=== PATIENT | male | born 1995 | race African-American/Black ===

== ENCOUNTER 2016-09-13 22:41 | Emergency (ER) | payer MEDICARE, MEDICAID ==
[~2016-09-13] VITALS: Ht 182.9 cm; Wt 81.8 kg
[~2016-09-13 22:41] MED LIST: ALEVE 220MG220 MG PO; AZASAN100 MG; BUSPAR5 MG PO; CELLCEPT 5500 MG/TAB; COGENTIN .0.5 MG/TAB PO; COGENTIN 1MG1 MG/TAB PO; DEPAKOTE ER 25250 MG PO; DIVALPROEX SOD250 M1 PO; DOXYCYCLINE 10100 MG PO; IMURAN 50MG TAB50 MG PO; INVEGA3 MG PO; KLONOPIN 0.5MG0.5 MG; KLONOPIN 1MG1 M1 PO; KLONOPIN 1MG1 MG PO; LITHIUM 30300 MG/CAP PO; LITHIUM CA150 MG/CAP; MIDRIN CAPSULE1 CAP PO; NO HOME MEDICATIONS; PEPCID 20MG TAB20 MG PO; PERCOCET 325 MG1 TA2 PO; PREDNISONE 5MG5 MG PO; PROVENTIL0.09 MG/A1 IH; RISPERDAL M-TAB1 MG PO; VITAMIN D 400400 IU PO; ZANTAC 150150 MG PO; ZITHROMAX 250M250 MG PO; ZYPREXA15 MG PO; ZYPREXA2.5 MG; ZYPREXA5 MG PO; ZYPREXA7.5 MG PO
[2016-09-13 22:47] VITALS: TEMP 99
[2016-09-13 23:21] LABS: BASO % 0.3 % (0.0-2.0); EOS % 0.1 % (0-4.0); GRAN # 5.9 (1.4-6.5); GRAN % 74.6 % (42.2-75.2); HEMATOCRIT 39.3 % (42.0-52.0); HEMOGLOBIN 12.5 g/dl (13.5-18.0); LYMPH # 1.3 (1.2-3.4); LYMPH % 16.4 % (20.0-51.0); MEAN CELL VOLUME 94 fl (80.0-100.0); MEAN CORPUSCULAR HEMOGLOBIN 30 pg (27.0-31.0); MEAN CORPUSCULAR HGB CONC 32 g/dl (33.0-37.0); MEAN PLATELET VOLUME 8.9 fl (7.4-10.4); MONO # 0.7 (0.1-0.6); MONO % 8.3 % (1.7-9.3); PLATELET COUNT 242 K/mm3 (130-400); RED BLOOD COUNT 4.18 M/mm3 (4.20-5.60); REDCELL DISTRIBUTION WIDTH-CV 13.2 % (11.5-14.5); WHITE BLOOD COUNT 7.9 K/mm3 (4.8-10.8)
[2016-09-13 23:35] LABS: CALCIUM 8.6 mg/dL (8.4-10.2); CREATININE, serum 0.85 mg/dL (0.66-1.25); POTASSIUM 3.6 mmol/L (3.4-5.0)
[2016-09-13 23:43] LABS: ERYTHROCYTE SEDIMENTATION RATE 28 mm/hr (0-15)
[2016-09-13 23:46] LABS: TROPONIN-I 0.014 ng/mL (0.000-0.034)
[2016-09-14] MEDS ORDERED: NAPROSYN500 MG PO (00:24)
[2016-09-14 01:18] VITALS: BP 128/70; PULSE 88
[2016-12-16] MEDS ORDERED: CRUTCHES MC (08:16)
== END 2016-09-14 01:19 | disposition home or self-care (01) ==
LOC: COL.ER 22:41
PROVIDERS: Emergency Medicine
DX: R07.89 Other chest pain (principal); R09.1 Pleurisy; J45.909 Unspecified asthma, uncomplicated; F31.9 Bipolar disorder, unspecified; F41.9 Anxiety disorder, unspecified; F20.9 Schizophrenia, unspecified; F17.210 Nicotine dependence, cigarettes, uncomplicated; F17.290 Nicotine dependence, other tobacco product, uncomplicated
CPT/HCPCS: J1885

== ENCOUNTER 2016-09-15 14:08 | Emergency (ER) | payer MEDICARE, MEDICAID ==
[~2016-09-15] VITALS: Ht 182.9 cm; Wt 86.4 kg
[~2016-09-15 14:08] MED LIST changes: +NAPROSYN500 MG PO
[2016-09-15 15:36] LABS: MEAN CELL VOLUME 92 fl (80.0-100.0); MEAN CORPUSCULAR HGB CONC 33 g/dl (33.0-37.0); MEAN PLATELET VOLUME 9.6 fl (7.4-10.4); PLATELET COUNT 192 K/mm3 (130-400); RED BLOOD COUNT 3.79 M/mm3 (4.20-5.60); REDCELL DISTRIBUTION WIDTH-CV 13.1 % (11.5-14.5); WHITE BLOOD COUNT 16.5 K/mm3 (4.8-10.8)
[2016-09-15 15:43] LABS: HEMATOCRIT 34.7 % (42.0-52.0); HEMOGLOBIN 11.6 g/dl (13.5-18.0); MEAN CORPUSCULAR HEMOGLOBIN 31 pg (27.0-31.0)
[2016-09-15 15:44] LABS: ADD PATHOLOGY DIFF REVIEW NO
[2016-09-15 15:46] LABS: ADJUSTED CALCIUM 8.6 mg/dL (8.4-10.2); BILIRUBIN,TOTAL 2.1 mg/dL (0.0-1.0); CALCIUM 8.6 mg/dL (8.4-10.2); CREATININE, serum 0.91 mg/dL (0.66-1.25); TOTAL PROTEIN 8.4 gm/dL (6.4-8.2)
[2016-09-15 15:48] LABS: INFLUENZA B NEGATIVE
[2016-09-15 15:52] LABS: ANISOCYTOSIS 1+; BAND 5 % (0-10); NEUTROPHILS 85 % (42.0-75.2); TOTAL CELLS COUNTED 100
[2016-09-15 15:55] LABS: ERYTHROCYTE SEDIMENTATION RATE 67 mm/hr (0-15)
[2016-09-15 16:00] LABS: TROPONIN-I 0.183 ng/mL (0.000-0.034)
[2016-09-15 16:18] LABS: C-REACTIVE PROTEIN 23.5 mg/dL (0.0-0.9)
[2016-09-15 16:43] LABS: AMPHETAMINE URINE NEGATIVE; BARBITURATES URINE NEGATIVE; BENZODIAZEPINES URINE NEGATIVE; BUPRENORPHINE URINE NEGATIVE; METHADONE URINE NEGATIVE; OPIATES URINE POSITIVE; OXYCODONE URINE NEGATIVE; PH 6 (5-8); PHENCYCLIDINE URINE NEGATIVE; PROPOXYPHENE URINE NEGATIVE; SQUAMOUS EPITHELIAL 0-2 /hpf; THC CANNABINOIDS URINE POSITIVE; URINE APPEARANCE Hazy; URINE BACTERIA None Seen /hpf; URINE BILIRUBIN Negative (NEGATIVE); URINE BLOOD 1+ (NEGATIVE); URINE COLOR Amber; URINE GLUCOSE Negative (NEGATIVE); URINE KETONE Trace (NEGATIVE); URINE UROBILINOGEN >=4.0 mg/dL (NEGATIVE)
[2016-09-15 17:58] VITALS: BP 108/66; PULSE 80; TEMP 98.4
[2016-12-16] MEDS ORDERED: CRUTCHES MC (08:16)
== END 2016-09-15 18:18 | disposition short-term general hospital (02) ==
LOC: COL.ER 14:08
PROVIDERS: Emergency Medicine
DX: I51.7 Cardiomegaly (principal); R11.2 Nausea with vomiting, unspecified; R50.9 Fever, unspecified; F31.9 Bipolar disorder, unspecified; F20.9 Schizophrenia, unspecified; J45.909 Unspecified asthma, uncomplicated; M60.9 Myositis, unspecified; F17.210 Nicotine dependence, cigarettes, uncomplicated
CPT/HCPCS: J1885; J2405; J2550; J7030

== ENCOUNTER 2016-12-15 20:49 | Emergency (ER) | payer MEDICARE, MEDICAID ==
[~2016-12-15] VITALS: Ht 180.3 cm; Wt 77.3 kg
[2016-12-15 20:56] VITALS: TEMP 99.4
[2016-12-15 21:22] LABS: BASO % 0.2 % (0.0-2.0); EOS % 0.1 % (0-4.0); GRAN # 7.4 (1.4-6.5); GRAN % 80.1 % (42.2-75.2); HEMATOCRIT 38.4 % (42.0-52.0); HEMOGLOBIN 12.4 g/dl (13.5-18.0); LYMPH # 1.1 (1.2-3.4); LYMPH % 11.7 % (20.0-51.0); MEAN CELL VOLUME 94 fl (80.0-100.0); MEAN CORPUSCULAR HEMOGLOBIN 30 pg (27.0-31.0); MEAN CORPUSCULAR HGB CONC 32 g/dl (33.0-37.0); MEAN PLATELET VOLUME 9.4 fl (7.4-10.4); MONO # 0.7 (0.1-0.6); MONO % 7.8 % (1.7-9.3); PLATELET COUNT 286 K/mm3 (130-400); RED BLOOD COUNT 4.09 M/mm3 (4.20-5.60); REDCELL DISTRIBUTION WIDTH-CV 15.7 % (11.5-14.5); WHITE BLOOD COUNT 9.3 K/mm3 (4.8-10.8)
[2016-12-15 21:28] LABS: PH 6 (5-8); SQUAMOUS EPITHELIAL 0-2 /hpf; URINE APPEARANCE Clear; URINE BACTERIA None Seen /hpf; URINE BILIRUBIN Negative (NEGATIVE); URINE BLOOD Negative (NEGATIVE); URINE COLOR Amber; URINE GLUCOSE Negative (NEGATIVE); URINE KETONE Trace (NEGATIVE); URINE RBC None Seen /hpf; URINE UROBILINOGEN Negative (NEGATIVE); URINE WBC 0-2 /hpf
[2016-12-15 21:39] LABS: ADJUSTED CALCIUM 8.7 mg/dL (8.4-10.2); ALBUMIN 4.1 gm/dL (3.5-5.0); BILIRUBIN,TOTAL 0.7 mg/dL (0.0-1.0); CALCIUM 8.8 mg/dL (8.4-10.2); CREATININE, serum 0.73 mg/dL (0.66-1.25); POTASSIUM 3.8 mmol/L (3.4-5.0); TOTAL PROTEIN 7.9 gm/dL (6.4-8.2)
[2016-12-15] MEDS ORDERED: NORCO 325 MG-51 TAB PO (23:05)
[2016-12-15 23:25] VITALS: BP 134/76; PULSE 70
[2016-12-16] MEDS ORDERED: CRUTCHES MC (08:16)
== END 2016-12-15 23:42 | disposition home or self-care (01) ==
LOC: COL.ER 20:49
PROVIDERS: Emergency Medicine
DX: S97.82XA Crushing injury of left foot, initial encounter (principal); S62.334A Displaced fracture of neck of fourth metacarpal bone, right hand, initial encounter for closed fracture; S09.90XA Unspecified injury of head, initial encounter; W10.9XXA Fall (on) (from) unspecified stairs and steps, initial encounter; Y92.009 Unspecified place in unspecified non-institutional (private) residence as the place of occurrence of the external cause
CPT/HCPCS: J1170; J1885; J2405; J3010; J7030; L2114

== ENCOUNTER 2017-02-19 12:46 | Emergency (ER) | payer MEDICARE, MEDICAID ==
[~2017-02-19] VITALS: Ht 182.9 cm; Wt 77.3 kg
[~2017-02-19 12:46] MED LIST changes: +CRUTCHES MC; +NORCO 325 MG-51 TAB PO
[2017-02-19 12:54] VITALS: BP 119/72; TEMP 98.5
[2017-02-19] MEDS ORDERED: IMURAN 50MG TAB50 MG PO (12:58)
[2017-02-19] MEDS ORDERED: ZOVIRAX 200MG200 MG PO (16:30)
[2017-02-19 16:53] LABS: CHLAMYDIA/TRACH by PCR Male NOT DETECTED; Neisseria Gon by PCR Male NOT DETECTED
[2017-02-19 17:16] VITALS: PULSE 62
== END 2017-02-19 17:17 | disposition home or self-care (01) ==
LOC: COL.ER 12:46
PROVIDERS: Physician Assistant Medical
DX: N50.9 Disorder of male genital organs, unspecified (principal); F31.9 Bipolar disorder, unspecified; F20.9 Schizophrenia, unspecified; Z86.19 Personal history of other infectious and parasitic diseases

== ENCOUNTER 2017-03-16 10:20 | Emergency (ER) | payer MEDICARE, MEDICAID ==
[~2017-03-16] VITALS: Ht 180.3 cm; Wt 72.7 kg
[~2017-03-16 10:20] MED LIST changes: +ZOVIRAX 200MG200 MG PO
[2017-03-16 10:24] VITALS: BP 117/68; PULSE 77; TEMP 98.1
[2017-03-16] MEDS ORDERED: BACTRIM DS 8001 TAB PO (10:59)
== END 2017-03-16 11:32 | disposition home or self-care (01) ==
LOC: COL.ER 10:20
DX: S51.812A Laceration without foreign body of left forearm, initial encounter (principal); Z87.39 Personal history of other diseases of the musculoskeletal system and connective tissue; X58.XXXA Exposure to other specified factors, initial encounter

== ENCOUNTER 2017-03-30 17:42 | Emergency (ER) | payer MEDICARE, MEDICAID ==
[~2017-03-30] VITALS: Ht 185.4 cm; Wt 72.7 kg
[~2017-03-30 17:42] MED LIST changes: +BACTRIM DS 8001 TAB PO
[2017-03-30 19:05] LABS: BASO % 0.3 % (0.0-2.0); GRAN # 9.2 (1.4-6.5); GRAN % 93.8 % (42.2-75.2); HEMATOCRIT 41.9 % (42.0-52.0); HEMOGLOBIN 13.8 g/dl (13.5-18.0); LYMPH # 0.3 (1.2-3.4); LYMPH % 3.1 % (20.0-51.0); MEAN CELL VOLUME 93 fl (80.0-100.0); MEAN CORPUSCULAR HEMOGLOBIN 31 pg (27.0-31.0); MEAN CORPUSCULAR HGB CONC 33 g/dl (33.0-37.0); MEAN PLATELET VOLUME 10.1 fl (7.4-10.4); MONO # 0.2 (0.1-0.6); MONO % 2.3 % (1.7-9.3); PLATELET COUNT 237 K/mm3 (130-400); RED BLOOD COUNT 4.51 M/mm3 (4.20-5.60); WHITE BLOOD COUNT 9.8 K/mm3 (4.8-10.8)
[2017-03-30 19:25] LABS: ADJUSTED CALCIUM 8.5 mg/dL (8.4-10.2); ALBUMIN 4.4 gm/dL (3.5-5.0); BILIRUBIN,TOTAL 2.2 mg/dL (0.0-1.0); C-REACTIVE PROTEIN 6.8 mg/dL (0.0-0.9); CALCIUM 8.8 mg/dL (8.4-10.2); CREATININE, serum 2.12 mg/dL (0.66-1.25); POTASSIUM 4.2 mmol/L (3.4-5.0); TOTAL PROTEIN 8.5 gm/dL (6.4-8.2)
[2017-03-30 19:37] LABS: INFLUENZA A NEGATIVE; INFLUENZA B NEGATIVE
[2017-03-30 21:56] LABS: COLLECTION METHOD CLEAN CATCH
[2017-03-30 22:11] LABS: HYALINE CAST >12 /lpf; MUCOUS Present /lpf; PH 5 (5-8); SQUAMOUS EPITHELIAL 0-2 /hpf; URINE APPEARANCE Hazy; URINE BACTERIA None Seen /hpf; URINE BILIRUBIN Negative (NEGATIVE); URINE BLOOD Negative (NEGATIVE); URINE COLOR Amber; URINE GLUCOSE Negative (NEGATIVE); URINE KETONE Trace (NEGATIVE); URINE LEUKOCYTE ESTERASE Negative (NEGATIVE); URINE PROTEIN(semi-quant) 1+ (NEGATIVE); URINE UROBILINOGEN >=4.0 mg/dL (NEGATIVE)
[2017-03-30 22:34] VITALS: BP 99/54; PULSE 80; TEMP 100.1
== END 2017-03-30 22:39 | disposition short-term general hospital (02) ==
LOC: COL.ER 17:42
PROVIDERS: Emergency Medicine
DX: M33.10 Other dermatomyositis, organ involvement unspecified (principal); N19 Unspecified kidney failure; R50.9 Fever, unspecified; F20.9 Schizophrenia, unspecified; G43.909 Migraine, unspecified, not intractable, without status migrainosus
CPT/HCPCS: J1720; J1956; J2405; J7030

== ENCOUNTER 2017-12-20 18:07 | Emergency (ER) | payer MEDICARE, MEDICAID ==
[~2017-12-20] VITALS: Ht 182.9 cm; Wt 81.8 kg
[2017-12-20 18:10] VITALS: BP 133/79; PULSE 63; TEMP 98.6
[2017-12-20] MEDS ORDERED: CLEOCIN HCL300 MG PO (18:27)
[2017-12-20] MEDS ORDERED: NORCO 325 MG-51 TAB PO (18:27)
== END 2017-12-20 18:57 | disposition home or self-care (01) ==
LOC: COL.ER 18:07
DX: K08.89 Other specified disorders of teeth and supporting structures (principal); Z88.0 Allergy status to penicillin; Z88.1 Allergy status to other antibiotic agents

== ENCOUNTER 2018-01-15 08:49 | Emergency (ER) | payer MEDICARE, MEDICAID ==
[~2018-01-15] VITALS: Ht 182.9 cm; Wt 81.8 kg
[~2018-01-15 08:49] MED LIST changes: +CLEOCIN HCL300 MG PO
[2018-01-15 09:27] LABS: BASO % 0.3 % (0.0-2.0); EOS % 1.2 % (0-4.0); HEMOGLOBIN 13.9 g/dl (13.5-18.0); LYMPH # 0.9 (1.2-3.4); LYMPH % 26.5 % (20.0-51.0); MEAN CELL VOLUME 93 fl (80.0-100.0); MEAN CORPUSCULAR HEMOGLOBIN 30 pg (27.0-31.0); MEAN CORPUSCULAR HGB CONC 32 g/dl (33.0-37.0); MEAN PLATELET VOLUME 9.1 fl (7.4-10.4); MONO # 0.3 (0.1-0.6); PLATELET COUNT 286 K/mm3 (130-400); RED BLOOD COUNT 4.63 M/mm3 (4.20-5.60); REDCELL DISTRIBUTION WIDTH-CV 13.1 % (11.5-14.5)
[2018-01-15 09:38] LABS: ALANINE AMINOTRANSFERASE 32 U/L (21-72); ALBUMIN 4.5 gm/dL (3.5-5.0); ALKALINE PHOSPHATASE 109 U/L (50-136); ANION GAP 9 mmol/L (7-16); AST,SGOT 36 U/L (15-37); BILIRUBIN,TOTAL 0.3 mg/dL (0.0-1.0); BLOOD UREA NITROGEN 10 mg/dL (9-20); CALCIUM 8.9 mg/dL (8.4-10.2); CARBON DIOXIDE 27 mmol/L (22-30); CHLORIDE 103 mmol/L (98-107); CREATININE, serum 0.81 mg/dL (0.66-1.25); GLUCOSE 106 mg/dL (74-106); POTASSIUM 3.4 mmol/L (3.4-5.0); SODIUM 139 mmol/L (137-145); TOTAL PROTEIN 8.9 gm/dL (6.4-8.2)
[2018-01-15 09:47] LABS: ACETAMINOPHEN < 10 ug/mL (10-30); ALCOHOL(ethanol),MEDICAL < 10 mg/dL; SALICYLATE < 1.0 mg/dL
[2018-01-15 09:55] LABS: COLLECTION METHOD CLEAN CATCH
[2018-01-15 10:05] LABS: MUCOUS Present /lpf; PH 6 (5-8); SQUAMOUS EPITHELIAL None Seen /hpf; URINE APPEARANCE Cloudy; URINE BACTERIA Rare /hpf; URINE BILIRUBIN Negative (NEGATIVE); URINE BLOOD Negative (NEGATIVE); URINE COLOR Yellow; URINE GLUCOSE Negative (NEGATIVE); URINE KETONE Negative (NEGATIVE); URINE LEUKOCYTE ESTERASE 1+ (NEGATIVE); URINE NITRATE Negative (NEGATIVE); URINE PROTEIN(semi-quant) 2+ (NEGATIVE)
[2018-01-15 10:09] LABS: TRICYCLIC ANTIDEPRESS URINE NEGATIVE
[2018-01-16 10:07] VITALS: TEMP 96.8
[2018-01-16 15:25] VITALS: BP 112/63; PULSE 56
== END 2018-01-16 16:10 ==
LOC: COL.ER 08:49
PROVIDERS: Emergency Medicine
DX: R45.851 Suicidal ideations (principal); R45.850 Homicidal ideations; F20.9 Schizophrenia, unspecified; F17.210 Nicotine dependence, cigarettes, uncomplicated

== ENCOUNTER 2018-03-21 18:55 | Emergency (ER) | payer MEDICARE, MEDICAID ==
[~2018-03-21] VITALS: Ht 182.9 cm; Wt 92.3 kg
[2018-03-21 18:59] VITALS: BP 142/77; TEMP 98.8
[2018-03-21 20:02] VITALS: PULSE 75
== END 2018-03-21 20:02 | disposition home or self-care (01) ==
LOC: COL.ER 18:55
DX: S01.512A Laceration without foreign body of oral cavity, initial encounter (principal); W19.XXXA Unspecified fall, initial encounter; W22.8XXA Striking against or struck by other objects, initial encounter; Y92.009 Unspecified place in unspecified non-institutional (private) residence as the place of occurrence of the external cause

== ENCOUNTER 2018-04-13 19:02 | Emergency (ER) | payer MEDICARE, MEDICAID ==
[~2018-04-13] VITALS: Ht 182.9 cm; Wt 90.9 kg
[2018-04-13 19:07] VITALS: BP 133/83; TEMP 99.6
[2018-04-13 19:34] LABS: COLLECTION METHOD CLEAN CATCH
[2018-04-13 19:47] LABS: PH 6 (5-8); SQUAMOUS EPITHELIAL 0-2 /hpf; URINE APPEARANCE Clear; URINE BACTERIA None Seen /hpf; URINE BILIRUBIN Negative (NEGATIVE); URINE BLOOD Negative (NEGATIVE); URINE COLOR Yellow; URINE GLUCOSE Negative (NEGATIVE); URINE KETONE Negative (NEGATIVE); URINE LEUKOCYTE ESTERASE Trace (NEGATIVE); URINE NITRATE Negative (NEGATIVE); URINE PROTEIN(semi-quant) Negative (NEGATIVE); URINE UROBILINOGEN Negative (NEGATIVE)
[2018-04-13 20:08] VITALS: PULSE 70
== END 2018-04-13 20:08 | disposition home or self-care (01) ==
LOC: COL.ER 19:02
PROVIDERS: Emergency Medicine
DX: N34.2 Other urethritis (principal); F20.9 Schizophrenia, unspecified; F32.9 Major depressive disorder, single episode, unspecified; F17.210 Nicotine dependence, cigarettes, uncomplicated
CPT/HCPCS: J1580

== ENCOUNTER 2018-12-22 16:30 | Emergency (ER) | payer MEDICARE, MEDICAID ==
[~2018-12-22] VITALS: Ht 182.9 cm; Wt 100.0 kg
[2018-12-22 16:46] VITALS: BP 128/69; PULSE 76; TEMP 99.6
[2018-12-22] MEDS ORDERED: CLEOCIN HCL300 MG PO (17:23)
== END 2018-12-22 17:53 | disposition home or self-care (01) ==
LOC: COL.ER 16:30
DX: K08.89 Other specified disorders of teeth and supporting structures (principal)

== ENCOUNTER 2019-02-02 17:56 | Emergency (ER) | payer MEDICARE, MEDICAID ==
[~2019-02-02] VITALS: Ht 182.9 cm; Wt 100.0 kg
[2019-02-02 18:10] VITALS: BP 126/68; TEMP 98.7
[2019-02-02] MEDS ORDERED: NORCO 325 MG-51 TAB PO (18:28)
[2019-02-02] MEDS ORDERED: CLEOCIN HC150 MG/CAP PO (18:28)
[2019-02-02 18:43] VITALS: PULSE 75
== END 2019-02-02 18:43 | disposition home or self-care (01) ==
LOC: COL.ER 17:56
DX: K02.9 Dental caries, unspecified (principal)

== ENCOUNTER 2019-06-18 21:36 | Emergency (ER) | payer MEDICARE, MEDICAID ==
[~2019-06-18] VITALS: Ht 182.9 cm; Wt 90.9 kg
[~2019-06-18 21:36] MED LIST changes: +CLEOCIN HC150 MG/CAP PO
[2019-06-18 21:45] VITALS: BP 131/72; TEMP 98
[2019-06-18] MEDS ORDERED: IMURAN 50MG TAB50 MG PO (21:45)
[2019-06-19 01:03] VITALS: PULSE 66
== END 2019-06-19 01:03 | disposition home or self-care (01) ==
LOC: COL.ER 21:36
DX: S61.215A Laceration without foreign body of left ring finger without damage to nail, initial encounter (principal); F17.210 Nicotine dependence, cigarettes, uncomplicated; Z23 Encounter for immunization; W26.0XXA Contact with knife, initial encounter; Y92.009 Unspecified place in unspecified non-institutional (private) residence as the place of occurrence of the external cause

== ENCOUNTER 2019-06-23 17:42 | Emergency (ER) | payer MEDICARE, MEDICAID ==
[~2019-06-23] VITALS: Ht 182.9 cm; Wt 90.9 kg
[2019-06-23 17:53] VITALS: BP 128/72; PULSE 81; TEMP 98.4
[2019-06-23] MEDS ORDERED: DOXYCYCLINE 10100 MG PO (18:36)
== END 2019-06-23 18:43 | disposition home or self-care (01) ==
LOC: COL.ER 17:42
DX: S61.215D Laceration without foreign body of left ring finger without damage to nail, subsequent encounter (principal); F17.210 Nicotine dependence, cigarettes, uncomplicated; X58.XXXD Exposure to other specified factors, subsequent encounter

== ENCOUNTER → 2019-06-27 | Outpatient (CLI) | payer MEDICARE, MEDICAID ==
[2019-06-27 18:43] VITALS: BP 137/74; PULSE 64; TEMP 98.5
== END ==
LOC: COL.ER 18:37
DX: Z48.02 Encounter for removal of sutures (principal)

== ENCOUNTER 2019-09-11 02:14 | Emergency (ER) | payer MEDICARE, MEDICAID ==
[~2019-09-11] VITALS: Ht 182.9 cm; Wt 90.9 kg
[~2019-09-11 02:14] MED LIST changes: +ANUSOL HC CREAM30 GM TP; +PHENERGAN 25 TA25 MG PO; +SINGULAIR 110 MG/TAB PO
[2019-09-11 03:28] LABS: BASO % 0.4 % (0.0-2.0); EOS % 0.2 % (0-4.0); GRAN # 4.1 (1.4-6.5); GRAN % 74.2 % (42.2-75.2); HEMATOCRIT 39.5 % (42.0-52.0); HEMOGLOBIN 12.9 g/dl (13.5-18.0); LYMPH % 17.7 % (20.0-51.0); MEAN CELL VOLUME 93 fl (80.0-100.0); MEAN CORPUSCULAR HEMOGLOBIN 30 pg (27.0-31.0); MEAN CORPUSCULAR HGB CONC 33 g/dl (33.0-37.0); MEAN PLATELET VOLUME 9.9 fl (7.4-10.4); MONO # 0.4 (0.1-0.6); MONO % 7.3 % (1.7-9.3); PLATELET COUNT 231 K/mm3 (130-400); RED BLOOD COUNT 4.25 M/mm3 (4.20-5.60); REDCELL DISTRIBUTION WIDTH-CV 12.5 % (11.5-14.5)
[2019-09-11 03:38] LABS: ALBUMIN 4.2 gm/dL (3.5-5.0); BILIRUBIN,TOTAL 0.7 mg/dL (0.0-1.0); CALCIUM 8.8 mg/dL (8.4-10.2); CREATININE, serum 1.14 (0.66-1.25); POTASSIUM 3.6 mmol/L (3.4-5.0); TOTAL PROTEIN 8.6 gm/dL (6.4-8.2)
[2019-09-11 03:43] LABS: STREP SCREEN NEGATIVE
[2019-09-11 04:46] VITALS: BP 118/67; PULSE 68; TEMP 98.9
== END 2019-09-11 04:50 | disposition home or self-care (01) ==
LOC: COL.ER 02:14
PROVIDERS: Emergency Medicine
DX: B34.9 Viral infection, unspecified (principal); Z20.828 Contact with and (suspected) exposure to other viral communicable diseases; F17.210 Nicotine dependence, cigarettes, uncomplicated
CPT/HCPCS: J1885; J2405; J3010; J7030

== ENCOUNTER 2020-01-26 11:03 | Emergency (ER) | payer MEDICARE, MEDICAID ==
[~2020-01-26] VITALS: Ht 182.9 cm; Wt 90.9 kg
[2020-01-26 11:06] VITALS: BP 129/80; PULSE 91; TEMP 98.2
== END 2020-01-26 11:27 | disposition home or self-care (01) ==
LOC: COL.ER 11:03
DX: K06.8 Other specified disorders of gingiva and edentulous alveolar ridge (principal); Z53.21 Procedure and treatment not carried out due to patient leaving prior to being seen by health care provider

== ENCOUNTER 2020-09-13 20:12 | Emergency (ER) | payer MEDICARE, MEDICAID ==
[~2020-09-13] VITALS: Ht 182.9 cm; Wt 90.9 kg
[~2020-09-13 20:12] MED LIST changes: +ASPI325T6 PO; +LEVAQUIN 750MG750 M1 PO
[2020-09-13 20:24] VITALS: TEMP 98.3
[2020-09-13 21:51] VITALS: BP 153/90; PULSE 63
[2020-09-13 23:23] LABS: COLLECTION METHOD CLEAN CATCH
[2020-09-13 23:29] LABS: PH 6 (5-8); SQUAMOUS EPITHELIAL 0-2 /hpf; URINE APPEARANCE Clear; URINE BACTERIA None Seen /hpf; URINE BILIRUBIN Negative (NEGATIVE); URINE BLOOD Negative (NEGATIVE); URINE COLOR Yellow; URINE GLUCOSE Negative (NEGATIVE); URINE KETONE Negative (NEGATIVE); URINE LEUKOCYTE ESTERASE Negative (NEGATIVE); URINE NITRATE Negative (NEGATIVE); URINE PROTEIN(semi-quant) Negative (NEGATIVE); URINE RBC 0-2 /hpf; URINE UROBILINOGEN Negative (NEGATIVE)
== END 2020-09-13 21:53 | disposition home or self-care (01) ==
LOC: COL.ER 20:12
PROVIDERS: Physician Assistant
DX: N34.2 Other urethritis (principal); Z88.0 Allergy status to penicillin; Z88.1 Allergy status to other antibiotic agents; Z88.2 Allergy status to sulfonamides
CPT/HCPCS: J0696

== ENCOUNTER 2020-12-03 09:37 | Emergency (ER) | payer MEDICARE, MEDICAID ==
[~2020-12-03] VITALS: Ht 185.4 cm; Wt 90.9 kg
[2020-12-03 10:13] VITALS: TEMP 98
[2020-12-03] MEDS ORDERED: NAPROSYN500 MG PO (11:33)
[2020-12-03] MEDS ORDERED: FLEXERIL 1010 MG/TAB PO (11:33)
[2020-12-03 12:00] VITALS: BP 118/70; PULSE 69
== END 2020-12-03 12:00 | disposition home or self-care (01) ==
LOC: COL.ER 09:37
DX: S06.0X0A Concussion without loss of consciousness, initial encounter (principal); M54.2 Cervicalgia; M25.511 Pain in right shoulder; Y04.0XXA Assault by unarmed brawl or fight, initial encounter

== ENCOUNTER 2020-12-23 17:09 | Emergency (ER) | payer MEDICARE, MEDICAID ==
[~2020-12-23] VITALS: Ht 182.9 cm; Wt 90.9 kg
[~2020-12-23 17:09] MED LIST changes: +FLEXERIL 1010 MG/TAB PO
[2020-12-23 18:15] VITALS: BP 132/72; PULSE 76; TEMP 98.1
== END 2020-12-23 18:15 | disposition home or self-care (01) ==
LOC: COL.ER 17:09
DX: Z20.2 Contact with and (suspected) exposure to infections with a predominantly sexual mode of transmission (principal); R30.0 Dysuria; R36.9 Urethral discharge, unspecified; Z88.0 Allergy status to penicillin; Z88.1 Allergy status to other antibiotic agents; Z88.2 Allergy status to sulfonamides
CPT/HCPCS: J0696

== ENCOUNTER → 2021-08-24 | Outpatient (CLI) | payer MEDICARE, OTHER ==
[2021-08-24 14:49] LABS: BASO % 0.3 % (0.0-2.0); EOS % 1.3 % (0.0-4.0); GRAN # 1.6 K/mm3 (1.4-6.5); GRAN % 51.2 % (42.2-75.2); HEMATOCRIT 41.2 % (42.0-52.0); HEMOGLOBIN 13.8 g/dl (13.5-18.0); LYMPH # 1.1 K/mm3 (1.2-3.4); LYMPH % 36.8 % (20.0-51.0); MEAN CELL VOLUME 91 fl (80.0-100.0); MEAN CORPUSCULAR HEMOGLOBIN 31 pg (27-31); MEAN CORPUSCULAR HGB CONC 34 g/dl (33.0-37.0); MONO # 0.3 K/mm3 (0.1-0.6); MONO % 10.4 % (1.7-9.3); PLATELET COUNT 222 K/mm3 (130-400); RED BLOOD COUNT 4.51 M/mm3 (4.20-5.60); REDCELL DISTRIBUTION WIDTH-CV 12.7 % (11.5-14.5)
[2021-08-24 15:14] LABS: C-REACTIVE PROTEIN 0.07 mg/dL (0.00-0.50)
[2021-08-28 10:17] LABS: ALBUMIN 4.7 gm/dL (3.5-5.0); BILIRUBIN,TOTAL 0.4 mg/dL (0.2-1.2); CALCIUM 8.8 mg/dL (8.4-10.2); CREATININE, serum 1.13 mg/dL (0.72-1.25); POTASSIUM 4.1 mmol/L (3.5-4.5); TOTAL PROTEIN 8.8 gm/dL (6.2-8.1)
== END ==
LOC: COL.LAB 14:11
DX: Z79.899 Other long term (current) drug therapy (principal)

== ENCOUNTER → 2022-07-18 | Outpatient (CLI) | payer OTHER, MEDICARE ==
[~2022-07-18] MED LIST changes: +IMURAN 50MG TAB50 MG
[2022-07-18 11:04] LABS: BASO % 0.6 % (0.0-2.0); EOS # 0.1 K/mm3 (0.0-0.7); EOS % 1.5 % (0.0-4.0); GRAN # 1.5 K/mm3 (1.4-6.5); GRAN % 44.7 % (42.2-75.2); HEMATOCRIT 40.8 % (42.0-52.0); HEMOGLOBIN 13.5 g/dl (13.5-18.0); LYMPH # 1.3 K/mm3 (1.2-3.4); LYMPH % 40.9 % (20.0-51.0); MEAN CELL VOLUME 91 fl (80.0-100.0); MEAN CORPUSCULAR HEMOGLOBIN 30 pg (27-31); MEAN CORPUSCULAR HGB CONC 33 g/dl (33.0-37.0); MONO # 0.4 K/mm3 (0.1-0.6); MONO % 12.3 % (1.7-9.3); PLATELET COUNT 211 K/mm3 (130-400); RED BLOOD COUNT 4.49 M/mm3 (4.20-5.60); REDCELL DISTRIBUTION WIDTH-CV 13.5 % (11.5-14.5)
[2022-07-18 11:19] LABS: C-REACTIVE PROTEIN 0.16 mg/dL (0.00-0.50); CREATININE, serum 1.01 mg/dL (0.72-1.25)
== END ==
LOC: COL.LAB 10:35
PROVIDERS: Nurse Practitioner Family
DX: Z79.899 Other long term (current) drug therapy (principal)

== ENCOUNTER → 2022-08-28 | Outpatient (CLI) | payer OTHER, MEDICARE ==
[2022-08-28 09:47] LABS: BASO % 0.7 % (0.0-2.0); EOS % 1.1 % (0.0-4.0); GRAN # 1.5 K/mm3 (1.4-6.5); GRAN % 54.1 % (42.2-75.2); HEMATOCRIT 37.2 % (42.0-52.0); HEMOGLOBIN 12.5 g/dl (13.5-18.0); LYMPH # 0.9 K/mm3 (1.2-3.4); LYMPH % 31.4 % (20.0-51.0); MEAN CELL VOLUME 92 fl (80.0-100.0); MEAN CORPUSCULAR HEMOGLOBIN 31 pg (27-31); MEAN CORPUSCULAR HGB CONC 34 g/dl (33.0-37.0); MEAN PLATELET VOLUME 9.9 fl (7.4-10.4); MONO # 0.4 K/mm3 (0.1-0.6); MONO % 12.7 % (1.7-9.3); PLATELET COUNT 229 K/mm3 (130-400); RED BLOOD COUNT 4.06 M/mm3 (4.20-5.60); REDCELL DISTRIBUTION WIDTH-CV 13.2 % (11.5-14.5)
[2022-08-28 09:59] LABS: C-REACTIVE PROTEIN 0.29 mg/dL (0.00-0.50); CREATININE, serum 1.21 mg/dL (0.72-1.25)
== END ==
LOC: COL.LAB 09:00
PROVIDERS: Nurse Practitioner Family
DX: M33.20 Polymyositis, organ involvement unspecified (principal); Z79.899 Other long term (current) drug therapy